=== PATIENT | male | born 2000 | race Caucasian/White ===

== ENCOUNTER 2022-09-29 08:28 | Outpatient (CLI) | payer OTHER, SELFPAY ==
--- NOTE | ~2022-09-29 | US_ITS ---
EXAMINATION: US scrotum doppler DATE: 09/29/2022 09:06 INDICATION: Left testicular pain TECHNIQUE: Testicular sonogram utilizing grayscale and Doppler COMPARISON: None. FINDINGS: The right testis measures 4.7 x 1.7 x 3.5 cm. The left testis measures 4.5 x 2.3 x 3 cm. Th ere is normal vascular flow to both testes. The right epididymis is normal with normal vascular flow. The left epididymis is normal with normal vascular flow. There is no varicocele or hydrocele. IMPRESSION: 1. No sonographic correlate for the patient's symptoms. Reviewed, dictated and finalized at location A.
== END 2022-09-29 08:29 | disposition home or self-care (01) ==
PROVIDERS: PCP Internal Medicine; Visit Provider Nurse Practitioner
DX: N50.819 Testicular pain, unspecified (principal)
CPT/HCPCS: 76870; 93976